=== PATIENT | male | born 1945 | race Caucasian/White ===

== ENCOUNTER 2017-09-13 09:18 | Emergency (ER) | payer OTHER, MEDICARE ==
[2017-09-13] MEDS ORDERED: APAP/HYDROCODONE 325/5 TAB PO ONE (09:26)
[2017-09-13] MEDS ORDERED: APAP/HYDROCODONE 325/5 TAB ONE (09:52)
[2017-09-13 09:54] LABS: BASOPHILS % (AUTO) 1 % (0-3); EOSINOPHILS % (AUTO) 3 % (0-9); HEMATOCRIT 42 % (39-53); HEMOGLOBIN 14.6 gm/dl (13.5-17.7); LYMPHOCYTES % (AUTO) 34.4 % (10-50); MEAN CORPUSCULAR HEMOGLOBIN 30.5 pg (27.0-32.0); MEAN CORPUSCULAR HGB CONC 34.8 gm/dl (32.0-36.0); MEAN CORPUSCULAR VOLUME 88 fL (80-100); MONOCYTES % (AUTO) 12.4 % (0-12); NEUTROPHILS % (AUTO) 49.3 % (37-80)
[2017-09-13] MEDS: APAP/HYDROCODONE 325/5 TAB PO ONE (09:55)
[2017-09-13 09:56] VITALS: TEMP 97.5
[2017-09-13 09:57] LABS: CALCIUM 8.9 mg/dl (8.5-10.1); CARBON DIOXIDE 27.6 mEq/L (21-32); CREATININE 0.99 mg/dl (0.80-1.30)
[2017-09-13] MEDS: BACITRACIN 500 U/GM OIN TOP ONE (10:42)
[2017-09-13] MEDS ORDERED: BACITRACIN 500 U/GM OIN TOP ONE (10:44)
[2017-09-13 11:23] VITALS: PULSE 68; RESP 17; O2SAT 96
[2017-09-13 12:17] VITALS: BP 179/105
== END 2017-09-13 11:45 | disposition home or self-care (01) | DRG 605 ==
LOC: ED 09:18
DX: S01.01XA Laceration without foreign body of scalp, initial encounter (principal); S09.90XA Unspecified injury of head, initial encounter; I10 Essential (primary) hypertension; W19.XXXA Unspecified fall, initial encounter
CPT/HCPCS: 12004; 70450; 72125; 80048; 85025; 99285; G0390; A6402; A6446; A9270-GY